=== PATIENT | female | born 1980 | race Caucasian/White ===

== ENCOUNTER 2020-05-29 18:54 | Emergency (ER) | payer OTHER, MEDICAID, SELFPAY ==
[2020-05-29 19:03] VITALS: BP 137/70; PULSE 103; RESP 18; TEMP 36.2; O2SAT 98; BMI 16.1
[2020-05-29 20:49] LABS: Bacteria Urine None Seen
[2020-05-29 20:53] LABS: Appearance Urine UA CLEAR; Bilirubin Urine UA NEGATIVE (NEGATIVE); Color Urine UA YELLOW; Glucose Urine UA NEGATIVE (Negative); Ketones Urine UA NEGATIVE (NEGATIVE); Leukocyte Esterase Urine UA NEGATIVE (NEGATIVE); Nitrite Urine UA NEGATIVE (Negative); Occult Blood Urine UA TRACE-LYSED (Negative); Protein Urine UA NEGATIVE (Negative); Specific Gravity Urine UA 1.015 (1.000-1.035); Urobilinogen Urine UA 0.2 E.U./dL (0.2)
[2020-05-29 20:55] LABS: Add Manual Diff / Slide Review NO; Basophils Absolute Auto 100 /uL (0-100); Eosinophils Absolute Auto 200 /uL (0-450); Hematocrit 39.6 % (36-46); Lymphocytes Absolute Auto 3200 /uL (1100-4500); Lymphocytes Percent Auto 37.7 % (25-40); Mean Corpuscular HGB Conc 32.8 % (30-36); Mean Corpuscular Hemoglobin 30.7 PG (26-34); Mean Corpuscular Volume 93.6 fL (80-100); Monocytes Absolute Auto 600 /uL (0-900); Monocytes Percent Auto 7.4 % (3-14); Neutrophils Absolute Auto 4300 /uL (1500-7000); Neutrophils Percent Auto 50.9 % (50-75); Platelet Count 314 X10^3/uL (150-400); Red Blood Cell Count 4.23 X10^6/uL (4.0-5.2); Red Cell Distribution Width 16.6 % (11.6-14.8); White Blood Cell Count 8.4 X10^3/uL (4.5-11.0)
[2020-05-29 21:03] LABS: Ur Creatinine Normal (Normal); Ur Specific Gravity Normal (Normal); Urine pH Normal (Normal)
[2020-05-29 21:04] LABS: Acetaminophen < 10 ug/mL (10-30); Blood Urea Nitrogen 13 mg/dL (7-17); Calcium 9.2 mg/dL (8.4-10.2); Carbon Dioxide 32 mmol/L (22-32); Chloride 101 mmol/L (98-107); Estimated Glomerular Filt Rate > 60.0 mL/min (>60); Ethanol (ETOH) 212 mg/dL; Glucose 156 mg/dL (70-100); HEMOLYSIS < 15 (0-50); Sodium 144 mmol/L (137-145); UR Morphine/Opiate cutoff 300 Positive (Negative); Urine Amphetamines Positive (Negative); Urine Barbiturates Negative (Negative); Urine Benzodiazepines Negative (Negative); Urine Cocaine Negative (Negative); Urine MDMA Negative (Negative); Urine Methadone Negative (Negative); Urine Methamphetamines Positive (Negative); Urine Oxycodone Negative (Negative); Urine Phencyclidine Negative (Negative); Urine Tetrahydrocannabinol Positive (Negative); Urine Tricyclic Antidepressant Negative (Negative)
[2020-05-29 21:07] LABS: COVID19 -Nasal RAPID Negative (Negative)
[2020-05-29 21:08] LABS: Pregnancy Test Urine Negative (Negative)
[2020-05-29 21:10] LABS: Culture Indicated Urine Cult Not Indicated; Mucus Urine 1+ (Negative); RBC Urine 0-1/HPF (0-5/HPF); Squamous Epithelial Cell Urine 1-5 /HPF (0-5/HPF); WBC Urine 0-1/HPF (0-5/HPF)
[2020-05-29 21:13] LABS: Salicylate < 1.0 mg/dL (<20)
[2020-05-29 21:45] LABS: Thyroid Stimulating Hormone 3.18 uIU/mL (0.47-4.68)
--- NOTE | 2020-05-29 22:02 | ED.PSYCH ---
HPI - Psych General Chief Complaint: Psychiatric Symptoms Stated Complaint: Psych Eval Time Seen by Provider: 05/29/20 20:37 Source: patient Mode of arrival: Ambulatory Limitations: no limitations History of Present Illness HPI Narrative: Patient is a 40-year-old female who is here in the emergency department with a friend for a mental health evaluation. Patient states that she has had anxiety and depression in the past but has never been admitted to the hospital secondary to these. Does not have a primary doctor. Is not on any mental health medications. Several months ago sustained a dog bite to the left side of her face. She is followed by Plastic surgery at [facility]. She states that she has been evaluated by mental health down there in the past when she has had these multiple surgeries because of the dog bite. She states that she was told that they were ?protocol ?for someone who has had a trauma like this to be seen by mental health. She states that over the past several days she has become ?mentally exhausted. She does not know a specific reason as to why she has felt this way. She does admit to drinking alcohol. She does have a room that she is renting although she has spent nights outside for ?no reason ?she states she does not have any specific desire to kill herself or any plan to kill herself but admits that if she just never wakes up that would be okay with her. She reports no auditory or visual hallucinations. Related Data Allergies Allergy/AdvReac Type Severity Reaction Status Date / Time gabapentin Allergy Verified 05/29/20 19:11 venlafaxine [From Effexor] Allergy Verified 05/29/20 19:11 Review of Systems Constitutional Constitutional: Denies fever(s) and Denies headache(s) Eyes Eyes: Denies diplopia ENT Ears, Nose, Mouth, and Throat: Denies headache(s) Cardiovascular Cardiovascular: Denies chest pain and Denies dyspnea Respiratory Respiratory: Denies dyspnea Gastrointestinal Gastrointestinal: Denies abdominal pain, Denies nausea and Denies vomiting Musculoskeletal Musculoskeletal: Denies arthralgias and Denies myalgias Neurologic Neurologic: Denies behavioral changes, Denies confusion and Denies headache(s) Psychiatric Psychiatric: Reports anxiety, Denies behavioral changes, Denies confusion, Reports depression, Reports hopelessness, Denies irritability, Denies homicidal ideation and Denies suicidal ideation Hematologic/Lymphatic On Anticoagulants: No Allergic/Immunologic Allergic/Immunologic: Denies urticaria Patient History Medical History Alcohol abuse Anxiety Depression Dog bite Drug abuse Social History Smoking Status: Current every day smoker Smoking Status: Current every day smoker alcohol intake frequency: 3 or more drinks per day Substance Use Type: marijuana Exam Initial Vital Signs Initial Vital Signs: Vital Signs Temperature 97.2 F L 05/29/20 19:03 Pulse Rate 103 H 05/29/20 19:03 Respiratory Rate 18 05/29/20 19:03 Blood Pressure 137/70 05/29/20 19:03 Pulse Oximetry 98 05/29/20 19:03 Const General: cooperative and comfortable Limitations: mental status not altered HENMT Head: normal to inspection and normocephalic Face and sinus: other (Multiple postsurgical changes left-sided face) Resp Effort & Inspection: normal respiratory effort Cardio Rate: regular rate Skin Other: Multiple well-healed scars left-sided face, has a bridging areas of scarring from left nares to above left as a Neuro General: patient alert, patient awake and patient oriented x3 Speech: speech normal Sensory Exam: no sensory deficits noted Extrem General: normal to inspection Psych Appearance: disheveled Speech and Movement: speech and movement normal and not agitated Mood: congruent mood Affect: normal affect Attitude: cooperative Thought Content: no hallucinations, no homicidality and suicidality Scores GCS Kami coma scale eye opening: Spontaneous Kami coma scale verbal response: Orientated Kami coma scale motor response: Obey commands Sullivan coma scale total score: 15 Course Orders Ordered: ED Orders 05/29/20 20:43 Acetaminophen Stat Basic Metabolic Panel Stat COVID19 Stat Complete Blood Count AUTO DIFF Stat Ethanol (ETOH) Stat Test Urine Stat Salicylate Stat Thyroid Stimulating Hormone Stat Urinalysis and Microscopic Stat Urine Drug Screen, Rapid Stat Vital Signs Vital signs: Vital Signs - 8 hr 05/29/20 22:13 Temperature 98.0 F Pulse Rate 100 H Respiratory Rate 16 Blood Pressure 138/75 Pulse Oximetry 99 MDM - Psych Lab Data Attestation: I reviewed the patient's lab results. Result diagrams: 05/29/20 20:43 05/29/20 20:43 Labs: Lab Results 01/10/21 01/10/21 01/10/21 Range/Units 20:43 20:43 20:43 WBC 8.4 (4.5-11.0) X10^3/uL RBC 4.23 (4.0-5.2) X10^6/uL Hgb 13.0 (12.0-16.0) g/dL Hct 39.6 (36-46) % MCV 93.6 (80-100) fL MCH 30.7 (26-34) PG MCHC 32.8 (30-36) % RDW 16.6 H (11.6-14.8) % Plt Count 314 (150-400) X10^3/uL Neut % (Auto) 50.9 (50-75) % Lymph % (Auto) 37.7 (25-40) % [place] % (Auto) 7.4 (3-14) % Eos % (Auto) 3.0 (2-4) % Baso % (Auto) 1.0 (0-2) % Neut # (Auto) 4300 (9525-7360) /uL Lymph # (Auto) 3200 (4032-0218) /uL [place] # (Auto) 600 (0-900) /uL Eos # (Auto) 200 (0-450) /uL Baso # (Auto) 100 (0-100) /uL Sodium 144 (137-145) mmol/L Potassium 3.0 L (3.4-5.1) mmol/L Chloride 101 (98-107) mmol/L Carbon Dioxide 32 (22-32) mmol/L BUN 13 (7-17) mg/dL Creatinine 0.50 L (0.52-1.04) mg/dL Estimated GFR > 60.0 (>60) mL/min BUN/Creatinine Ratio 26.0 H (6-22) Glucose 156 H (70-100) mg/dL Calcium 9.2 (8.4-10.2) mg/dL TSH (0.47-4.68) uIU/mL Urine Color Urine Appearance Urine pH (4.5-8.0) Ur Specific [place] (1.000-1.035) Urine Protein (Negative) Urine Glucose (UA) (Negative) g/dL Urine Ketones (NEGATIVE) Urine Occult Blood (Negative) Urine Nitrate (Negative) Urine Bilirubin (NEGATIVE) Urine Urobilinogen (0.2) E.U./dL Ur Leukocyte Esterase (NEGATIVE) Urine RBC (0-5/HPF) Urine WBC (0-5/HPF) Ur Squamous Epith Cells (0-5/HPF) Urine Bacteria (None) Urine Mucus (Negative) Ur Culture Indicated? Urine Test Negative (Negative) Salicylates (<20) mg/dL U Opiates 300ng/mL cut (Negative) Ur Oxycodone Screen (Negative) Urine Methadone Screen (Negative) Acetaminophen < 10 L (10-30) ug/mL Ur Barbiturates Screen (Negative) U Tricyclic Antidepress (Negative) Ur Phencyclidine Scrn (Negative) Ur Amphetamines Screen (Negative) U Methamphetamines Scrn (Negative) Ur MDMA Scrn (Ecstasy) (Negative) U Benzodiazepines Scrn (Negative) Urine Cocaine Screen (Negative) U Marijuana (THC) Screen (Negative) Ethyl Alcohol 212 H ( - 10) mg/dL SARS-CoV-2 (PCR) (Negative) 05/29/20 05/29/20 05/29/20 Range/Units 20:43 20:43 20:43 WBC (4.5-11.0) X10^3/uL RBC (4.0-5.2) X10^6/uL Hgb (12.0-16.0) g/dL Hct (36-46) % MCV (80-100) fL MCH (26-34) PG MCHC (30-36) % RDW (11.6-14.8) % Plt Count (150-400) X10^3/uL Neut % (Auto) (50-75) % Lymph % (Auto) (25-40) % [place] % (Auto) (3-14) % Eos % (Auto) (2-4) % Baso % (Auto) (0-2) % Neut # (Auto) (5509-8450) /uL Lymph # (Auto) (2259-5024) /uL [place] # (Auto) (0-900) /uL Eos # (Auto) (0-450) /uL Baso # (Auto) (0-100) /uL Sodium (137-145) mmol/L Potassium (3.4-5.1) mmol/L Chloride (98-107) mmol/L Carbon Dioxide (22-32) mmol/L BUN (7-17) mg/dL Creatinine (0.52-1.04) mg/dL Estimated GFR (>60) mL/min BUN/Creatinine Ratio (6-22) Glucose (70-100) mg/dL Calcium (8.4-10.2) mg/dL TSH 3.18 (0.47-4.68) uIU/mL Urine Color Yellow Urine Appearance Clear Urine pH 6.0 (4.5-8.0) Ur Specific [place] 1.015 (1.000-1.035) Urine Protein Negative (Negative) Urine Glucose (UA) Negative (Negative) g/dL Urine Ketones Negative (NEGATIVE) Urine Occult Blood Trace-lysed (Negative) Urine Nitrate Negative (Negative) Urine Bilirubin Negative (NEGATIVE) Urine Urobilinogen 0.2 (0.2) E.U./dL Ur Leukocyte Esterase Negative (NEGATIVE) Urine RBC 0-1/hpf (0-5/HPF) Urine WBC 0-1/hpf (0-5/HPF) Ur Squamous Epith Cells 1-5 /hpf (0-5/HPF) Urine Bacteria None seen (None) Urine Mucus 1+ H (Negative) Ur Culture Indicated? Cult not indicated Urine Test (Negative) Salicylates < 1.0 (<20) mg/dL U Opiates 300ng/mL cut (Negative) Ur Oxycodone Screen (Negative) Urine Methadone Screen (Negative) Acetaminophen (10-30) ug/mL Ur Barbiturates Screen (Negative) U Tricyclic Antidepress (Negative) Ur Phencyclidine Scrn (Negative) Ur Amphetamines Screen (Negative) U Methamphetamines Scrn (Negative) Ur MDMA Scrn (Ecstasy) (Negative) U Benzodiazepines Scrn (Negative) Urine Cocaine Screen (Negative) U Marijuana (THC) Screen (Negative) Ethyl Alcohol ( - 10) mg/dL SARS-CoV-2 (PCR) (Negative) 05/29/20 05/29/20 Range/Units 20:43 20:43 WBC (4.5-11.0) X10^3/uL RBC (4.0-5.2) X10^6/uL Hgb (12.0-16.0) g/dL Hct (36-46) % MCV (80-100) fL MCH (26-34) PG MCHC (30-36) % RDW (11.6-14.8) % Plt Count (150-400) X10^3/uL Neut % (Auto) (50-75) % Lymph % (Auto) (25-40) % [place] % (Auto) (3-14) % Eos % (Auto) (2-4) % Baso % (Auto) (0-2) % Neut # (Auto) (7364-3946) /uL Lymph # (Auto) (6061-2695) /uL [place] # (Auto) (0-900) /uL Eos # (Auto) (0-450) /uL Baso # (Auto) (0-100) /uL Sodium (137-145) mmol/L Potassium (3.4-5.1) mmol/L Chloride (98-107) mmol/L Carbon Dioxide (22-32) mmol/L BUN (7-17) mg/dL Creatinine (0.52-1.04) mg/dL Estimated GFR (>60) mL/min BUN/Creatinine Ratio (6-22) Glucose (70-100) mg/dL Calcium (8.4-10.2) mg/dL TSH (0.47-4.68) uIU/mL Urine Color Urine Appearance Urine pH (4.5-8.0) Ur Specific [place] (1.000-1.035) Urine Protein (Negative) Urine Glucose (UA) (Negative) g/dL Urine Ketones (NEGATIVE) Urine Occult Blood (Negative) Urine Nitrate (Negative) Urine Bilirubin (NEGATIVE) Urine Urobilinogen (0.2) E.U./dL Ur Leukocyte Esterase (NEGATIVE) Urine RBC (0-5/HPF) Urine WBC (0-5/HPF) Ur Squamous Epith Cells (0-5/HPF) Urine Bacteria (None) Urine Mucus (Negative) Ur Culture Indicated? Urine Test (Negative) Salicylates (<20) mg/dL U Opiates 300ng/mL cut Positive H (Negative) Ur Oxycodone Screen Negative (Negative) Urine Methadone Screen Negative (Negative) Acetaminophen (10-30) ug/mL Ur Barbiturates Screen Negative (Negative) U Tricyclic Antidepress Negative (Negative) Ur Phencyclidine Scrn Negative (Negative) Ur Amphetamines Screen Positive H (Negative) U Methamphetamines Scrn Positive H (Negative) Ur MDMA Scrn (Ecstasy) Negative (Negative) U Benzodiazepines Scrn Negative (Negative) Urine Cocaine Screen Negative (Negative) U Marijuana (THC) Screen Positive H (Negative) Ethyl Alcohol ( - 10) mg/dL SARS-CoV-2 (PCR) Negative (Negative) MDM Narrative Medical decision making narrative: Had a discussion with patient regarding what was available here at this facility. Informed her that unfortunately we did not have a psychologist/psychiatrist that could come evaluate here in the emergency department. Informed her that unfortunately we do not admit mental health individuals here at this facility. We did discuss options that she has to include keeping her here in the emergency department until tomorrow morning so that social work come and see her. Informed her that is going to be no mental health facility that will take her with her alcohol level being elevated. She did admit to drinking alcohol this evening. We also discussed the positive results of her urine drug test. Patient is here with a friend. After an extensive discussion patient states she would like to be discharged home. She is going to go home under the care of her friend who is here in the ER. Her friend did agree to take responsibility for her. She is going to stay with her friend sandra. Not drink any more alcohol and tomorrow drive down to [facility] for further evaluation. She states she feels more comfortable at [facility] because that is where she has seen Mental Health in the past. Patient is not suicidal. I do not believe meets criteria for involuntary admission. I told her in multiple ways that she could stay here in the emergency department to be evaluated tomorrow in her alcohol level was below the legal limit. Patient was still like to be discharged home with her friend. She was informed not to drive. Discharge Plan Departure Patient Disposition: Home Clinical Impression: Alcohol intoxication Instructions: DI for Alcohol Use Disorder Activity Restrictions/Additional Instructions: You are being discharged under the care of your friend who is at bedside. No driving for the next 24 hours or in the future if you drink alcohol. Contact your primary provider for follow-up. You can contact 360 help you establish a primary doctor here in the local area. Return to the emergency department for any new or worsening symptoms
[2020-05-29 22:13] VITALS: BP 138/75; PULSE 100; RESP 16; TEMP 36.7; O2SAT 99
== END 2020-05-29 22:13 | disposition home or self-care (01) ==
PROVIDERS: Emergency Provider Emergency Medicine
DX: F10.129 Alcohol abuse with intoxication, unspecified (principal); Y90.7 Blood alcohol level of 200-239 mg/100 ml; F32.9 Major depressive disorder, single episode, unspecified; Z20.822 Contact with and (suspected) exposure to COVID-19
CPT/HCPCS: 36415; 80048; 80305; 80320; 80329; 81001; 81025; 84443; 85025; 87635; 99283; 99284; C9803; G0480